=== PATIENT | male | born 1965 | race Caucasian/White ===

== ENCOUNTER 2024-12-15 20:30 | Emergency (ER) | payer BC, SELFPAY ==
[2024-12-15 20:35] VITALS: BP 170/145
[2024-12-15 21:14] VITALS: BMI 30.3
[2024-12-15 21:17] VITALS: BP 161/84
[2024-12-15 21:18] VITALS: BP 161/84
[2024-12-15] MEDS: DECADRON 10 MG IV (21:32)
--- NOTE | 2024-12-15 21:34 | ED.GENMED ---
History of Present Illness
General
Chief Complaint: Allergic Reaction
Source: patient
Exam Limitations: none
Time Seen by Provider: 12/15/24 21:27
History of Present Illness
History of Present Illness:
59-year-old male with known allergy to wasps presents with a allergic reaction to multiple wasp stings over the chest head and feet. He took 75 mg of Benadryl at home. He has slight improvement of his hives. He denies shortness of breath or
vomiting. He states he feels the need to clear his throat however.
Past History
Past History
ED Past Medical History: None
ED Past Surgical History: None
Social History
Tobacco: Non-smoker
Alcohol: None
Living: with family
Phy Exam
Physical Exam
Physical Exam:
General: Well-appearing male no acute respiratory distress
HEENT normocephalic atraumatic posterior pharynx patent neck is supple
Heart: Regular rate and rhythm
Lungs: Clear no stridor
Abdomen is soft nontender
Extremities: No cyanosis
Skin: Urticarial rash over the thorax feet face
Course
Orders/Labs/Results
Orders:
Orders
12/15/24 21:28
Dexamethasone Sod Phosphate [Decadron] 10 mg IV NOW STA
Famotidine [Pepcid] 20 mg IV NOW STA
Vital Signs
Initial and Last Documented VS:
Initial Vital Signs
Temp Pulse Resp BP Pulse Ox
98.4 F 87 16 170/145 96
12/15/24 20:35 12/15/24 20:35 12/15/24 20:35 12/15/24 20:35 12/15/24 20:35
Last Documented Vital Signs
Temp Pulse Resp BP Pulse Ox
98.4 F 64 18 160/80 96
12/15/24 20:35 12/15/24 22:00 12/15/24 21:18 12/15/24 22:00 12/15/24 21:37
MDM/Problems Addressed
Differential Diagnosis Includes:
Allergic reaction to bee stings. No respiratory distress or vomiting vital signs are stable. Patient did take 75 mg of Benadryl
Will add Decadron and Pepcid and reevaluate.
*Pulse Oximetry
SaO2: 96
Oxygen Mode of Delivery: Room air
Patient hypoxic: no
*Critical Care Note
Total Time (30-74mins, 75-104mins- exclusive of procedures): Not Applicable
Update Note
Update Note:
Patient reexamined there is noted improvement of the areas of stings. No respiratory distress vital signs remained stable. No indication for admission. Will discharge with EpiPen.
ED Attending Note
-
Portions of this chart may have been created with voice recognition software.� Occasional wrong word or��sound alike� substitutions may have occurred due to the inherent limitations of voice recognition software.
Discharge Plan
Departure
Patient Disposition: Home (Routine Discharge)
Date of Disposition: 12/15/24
Time of Disposition: 22:12
Patient with high blood pressure during this ER visit?: No
Discharge Problem:
Allergic reaction
Instructions: Hives (DC)
Prescriptions:
New
epinephrine [EpiPen] 0.3 mg/0.3 mL auto-injector
0.3 mg IM ONCE Qty: 1 0RF
Referrals:
Thomas Sanchez DO [Family Provider, Family Practice]
Activity Restrictions/Additional Instructions:
Continue with Benadryl every 4 hours if needed. Return here for worsening symptoms. A prescription for an EpiPen was sent to your pharmacy
Interventions
Interventions:
*Risk Screen - Suicide Last Done: 12/15/24 20:35
*General Assessment Last Done: 12/15/24 20:35
*Neglect/Abuse Screening Last Done: 12/15/24 20:35
*ED- Fall Risk Assessment Last Done: 12/15/24 20:35
*ED COVID-19 Vaccine History Last Done: 12/15/24 20:35
ED- Cardiac Assessment Last Done: 12/15/24 21:23
ED- Pulmonary Assessment Last Done: 12/15/24 21:23
ED-Skin Assessment Last Done: 12/15/24 21:23
Discharge Date and Time
Print Language: ARMENIAN
[2024-12-15] MEDS: PEPCID 20 MG IV (21:37)
[2024-12-15 22:00] VITALS: BP 160/80
== END 2024-12-15 22:31 | disposition home or self-care (01) ==
LOC: EMR 20:30
PROVIDERS: EMERGENCY PHYSICIAN Student in an Organized Health Care Education/Training Program; FAMILY PHYSICIAN Family Medicine
DX: T63.461A Toxic effect of venom of wasps, accidental (unintentional), initial encounter (principal); L50.0 Allergic urticaria; Z91.030 Bee allergy status
CPT/HCPCS: 96374; 96375; 99284